=== PATIENT | female | born 1975 | race Caucasian/White ===

== ENCOUNTER → 2018-05-30 07:07 | Outpatient (CLI) | payer MEDICAID, SELFPAY ==
--- NOTE | 2018-06-01 15:17 | EEG ---
- Electroencephalogram Date of service 05/30/2018 This is an 18 channel electroencephalogram performed on this 43-year-old female with a history of seizures. Current medications include lamotrigine, citalopram and trazodone. 18 channel electroencephalogram was performed utilizing the International 10-20 electrode placement protocol as well as photic stimulation, hyperventilation and EKG reference leads. Background activity is 10 Hz symmetrically in the posterior leads which attenuates with eye opening. Hyperventilation is performed for 2 minutes and 18 seconds with no lateralizing or epileptiform changes. The post hyperventilatory phase is unremarkable. The patient remained awake throughout the recording without lateralizing or epileptiform changes. Photic stimulation generates a normal symmetric driving response. EKG rhythm strip recording is normal sinus rhythm throughout the recording. Impression: Normal awake electroencephalogram.
== END ==
PROVIDERS: Family Provider Family Medicine; PCP Family Medicine; Visit Provider Family Medicine
DX: G40.209 Localization-related (focal) (partial) symptomatic epilepsy and epileptic syndromes with complex partial seizures, not intractable, without status epilepticus (principal)

== ENCOUNTER → 2018-12-11 13:36 | Outpatient (CLI) | payer MEDICAID, SELFPAY ==
--- NOTE | 2018-12-11 13:41 | CT_ITS ---
STUDY: CTA NECK WITH CONTRAST REASON FOR EXAM: Female, 43 years old. Carotid artery stenosis. RADIATION DOSAGE (If Supplied By Facility): CTDIvol = ( 30.30 ) mGy, DLP = ( 1456.47 ) mGycm TECHNIQUE: CT angiography with multi-detector data acquisition was performed from the aortic arch to the skull base following intravenous administration of 100 IV Isovue 370. MIP images were reconstructed from the axial data set. Post-processing of the angiographic images was performed, with multiplanar reformation and 3D reconstruction. Individualized dose optimization techniques were used for this CT. COMPARISON: None. FINDINGS: AORTIC ARCH: Normal visualized aortic arch. Normal origins of the brachiocephalic, left common carotid, and left subclavian arteries. RIGHT CAROTID ARTERIES: Normal right common carotid artery (CCA). Normal right common carotid bulb. Normal origin of the right internal carotid (ICA) artery without a hemodynamically significant stenosis. Normal visualized cervical portion of the right internal carotid artery. Normal origin of the right external carotid artery (ECA). LEFT CAROTID ARTERIES: Normal left common carotid artery (CCA). Normal left common carotid bulb. Normal origin of the left internal carotid (ICA) artery without a hemodynamically significant stenosis. Normal visualized cervical portion of the left internal carotid artery. Normal origin of the left external carotid artery (ECA). VERTEBRAL ARTERIES: Normal bilateral vertebral arteries. CT/CTA Neck W/WO Contrast IMPRESSION: Normal bilateral cervical carotid and vertebral arteries. Electronically Signed: Sarthak Temple, at 7:35 EDT Tel , Service support ,
--- NOTE | 2018-12-11 13:41 | CT_ITS ---
STUDY: CTA OF THE BRAIN REASON FOR EXAM: Female, 43 years old. Carotid stenosis. RADIATION DOSAGE (If Supplied By Facility): CTDIvol = ( 30.30 ) mGy, DLP = ( 1456.47 ) mGycm TECHNIQUE: CT angiography was performed with a multi-detector CT scanner. Data acquisition was obtained from the skull base through the vertex following intravenous administration of 100 IV Isovue 370. MIP images were reconstructed from the axial data set. Post-processing of the angiographic images was performed, with multiplanar reformation and 3D reconstruction. Individualized dose optimization techniques were used for this CT. COMPARISON: None. FINDINGS: Normal bilateral [place] carotid arteries. Normal right cavernous carotid artery with a normal supraclinoid bifurcation. Normal left cavernous carotid artery with a normal supraclinoid bifurcation. Normal right A1 segments of the anterior cerebral artery. Normal left A1 segments of the anterior cerebral artery. Normal intact anterior communicating artery (ACOM). Normal bilateral A2 segments of the anterior cerebral arteries. Normal right M1 and M2 segments of the middle cerebral arteries, with a normal M1 bifurcation. Normal left M1 and M2 segments of the middle cerebral arteries, with a normal M1 bifurcation. There is non-visualization of the right posterior communicating artery (PCOM). There is non-visualization of the left posterior communicating artery (PCOM). Normal bilateral vertebral arteries. Normal basilar artery with a normal basilar bifurcation. The visualized bilateral superior cerebellar (SCA) arteries are normal. Normal bilateral P1, P2 and visualized P3 segments of the posterior cerebral arteries. There is no demonstrated aneurysm of the [place]. There is no demonstrated abnormality of the visualized brain. IMPRESSION: Normal [place] without a demonstrated aneurysm or hemodynamically significant stenosis. Electronically Signed: Sarthak Temple, at 7:31 EDT Tel , Service support , STUDY: CT BRAIN WITHOUT CONTRAST REASON FOR EXAM: Female, 43 years old. Carotid stenosis RADIATION DOSAGE (If Supplied By Facility): CTDIvol = ( 30.30 ) mGy, DLP = ( 1456.47 ) mGycm TECHNIQUE: Transaxial CT imaging of the brain was performed without administration of intravenous contrast material. Individualized dose optimization techniques were used for this CT. COMPARISON: No relevant priors. FINDINGS: Normal soft tissue structures. Normal calvarium. Normal size ventricles and extra-axial spaces for the patient's age. Normal white matter tracts of the cerebral hemispheres. Normal basal ganglia and thalami. Normal brainstem. Normal cerebellum. There is no intracranial hemorrhage. There are no findings of an acute ischemic infarction. Normal visualized paranasal sinuses. CT/CTA Head W/WO Contrast IMPRESSION: Normal unenhanced CT scan of the brain. Electronically Signed: Sarthak Temple, at 7:32 EDT Tel , Service support ,
== END ==
PROVIDERS: Family Provider Family Medicine; PCP Family Medicine; Referring Provider Family Medicine; Visit Provider Family Medicine
DX: I99.9 Unspecified disorder of circulatory system (principal)
CPT/HCPCS: 70496; 70498; Q9967